=== PATIENT | female | born 1995 | race Caucasian/White ===

== ENCOUNTER 2023-03-13 06:11 | Emergency (ER) | payer MEDICAID | END 2023-03-13 08:05 | disposition home or self-care (01) | LOC: JP.ED 06:11 | DX: S29.012A Strain of muscle and tendon of back wall of thorax, initial encounter (principal); F17.210 Nicotine dependence, cigarettes, uncomplicated; Z88.5 Allergy status to narcotic agent; X58.XXXA Exposure to other specified factors, initial encounter | CPT/HCPCS: 99283 ==